=== PATIENT | male | born 1990 | race Caucasian/White ===

== ENCOUNTER 2019-02-21 00:13 | Emergency (ER) | payer BC, SELFPAY ==
[2019-02-21] MEDS ORDERED: Ondansetron ODT 4 MG TAB ONE (00:52)
[2019-02-21] MEDS ORDERED: Promethazine 25 MG TAB ONE (00:52)
== END 2019-02-21 01:00 | disposition home or self-care (01) ==
LOC: MADERS 00:13
DX: R11.2 Nausea with vomiting, unspecified (principal); R50.9 Fever, unspecified
CPT/HCPCS: 87804; 99283; Q0162; Q0169

== ENCOUNTER 2019-04-05 11:04 | Emergency (ER) | payer BC | END 2019-04-05 12:10 | disposition home or self-care (01) | LOC: MADERS 11:04 | DX: J18.9 Pneumonia, unspecified organism (principal) | CPT/HCPCS: 99283 ==

== ENCOUNTER 2019-05-23 12:18 | Emergency (ER) | payer BC ==
--- NOTE | 2019-05-23 13:05 | RAD ---
Chest 2 views HISTORY: Cough. FINDINGS: Cardiac silhouette and pulmonary vasculature are unremarkable. Mediastinum is midline. No c onfluent airspace consolidation, pneumothorax, or pleural fluid. IMPRESSION : No active cardiopulmonary abnormalities are demonstrated.
== END 2019-05-23 13:36 | disposition home or self-care (01) ==
LOC: MADERS 12:18
DX: R05 Cough (principal)
CPT/HCPCS: 71046; 87804

== ENCOUNTER 2020-06-18 15:18 | Emergency (ER) | payer BC ==
[2020-06-18 16:39] LABS: #Basophils 0.1 thou/uL (0.0-0.2); #Eosinphils 0.2 thou/uL (0.0-0.7); #Lymphocytes 2.4 thou/uL (1.20-3.40); #Monocytes 0.5 thou/uL (0.11-0.59); %Basophils 0.8 % (0.0-1.0); %Eosinophils 3.7 % (0.0-10.0); %Lymphocytes 39.3 % (21.0-51.0); %Neutrophils 48.1 % (42.0-75.0); Hemoglobin 15.7 g/dL (14.0-18.0); Mean Corpuscular HGB CONC 32.9 g/dL (32.0-36.0); Mean Corpuscular Hemoglobin 30.2 pg (27.0-31.0); Mean Corpuscular Volume 91.8 fL (78.0-98.0); Mean Platelet Volume 9.2 fL (7.4-10.4); Platelet Count 185 thou/uL (130-400); RBC Distribution Width 10.6 % (11.5-14.5); Red Blood Cell (RBC) Count 5.18 mill/uL (4.70-6.10); White Blood Cell (WBC) Count 6.2 thou/uL (4.8-10.8)
[2020-06-18 17:00] LABS: ALT (SGPT) 24 U/L (8-55); AST (SGOT) 15 U/L (5-34); Albumin 4.2 g/dL (3.5-5.0); Alkaline Phosphatase 58 U/L (40-110); Anion Gap 13 mmol/L (10-20); BUN (Urea Nitrogen) 12 mg/dL (8.9-20.6); Bilirubin, Total 0.3 mg/dL (0.2-1.2); Calc. Creatinine Clearance 0 mL/min (70-130); Calcium 8.9 mg/dL (7.8-10.44); Carbon Dioxide 26 mmol/L (22-29); Chloride 104 mmol/L (98-107); Globulin 2.8 g/dL (2.4-3.5); Glucose 107 mg/dL (70-105); Potassium 4.4 mmol/L (3.5-5.1); Sodium 139 mmol/L (136-145)
[2020-06-18] MEDS ORDERED: Ketorolac Tromethamine 30 MG/ML VIAL ONE (17:30)
== END 2020-06-18 18:00 | disposition home or self-care (01) ==
LOC: MADERS 15:18
DX: M94.0 Chondrocostal junction syndrome [Tietze] (principal)
CPT/HCPCS: 71045; 80053; 84484; 85025; 93005; 96374; J1885

== ENCOUNTER 2020-08-28 09:15 | Emergency (ER) | payer BC | END 2020-08-28 10:00 | disposition home or self-care (01) | LOC: MADERS 09:15 | DX: M54.5 Low back pain (principal); X50.1XXA Overexertion from prolonged static or awkward postures, initial encounter | CPT/HCPCS: 99283 ==

== ENCOUNTER 2021-01-12 20:43 | Emergency (ER) | payer BC ==
[2021-01-12] MEDS ORDERED: Ibuprofen 800 MG TAB ONE (21:30)
== END 2021-01-12 21:37 | disposition home or self-care (01) ==
LOC: MADERS 20:43
DX: S43.401A Unspecified sprain of right shoulder joint, initial encounter (principal); W17.89XA Other fall from one level to another, initial encounter

== ENCOUNTER 2021-10-31 20:32 | Emergency (ER) | payer BC, SELFPAY ==
[2021-10-31] MEDS ORDERED: Boostrix 0.5 ML (Tdap) VIAL ONE (20:50)
[2021-10-31] MEDS ORDERED: Lidocaine 1% (PF) 30 ML VIAL ONE (20:51)
== END 2021-10-31 21:20 | disposition home or self-care (01) ==
LOC: MADERS 20:32
DX: S60.451A Superficial foreign body of left index finger, initial encounter (principal); W26.8XXA Contact with other sharp object(s), not elsewhere classified, initial encounter; Z23 Encounter for immunization
CPT/HCPCS: 64450; 90471; 90715; J2001

== ENCOUNTER 2023-05-05 12:03 | Emergency (ER) | payer SELFPAY ==
[2023-05-05] MEDS ORDERED: Lidocaine 1% (PF) 30 ML VIAL ONE (12:14)
[2023-05-05] MEDS ORDERED: Boostrix 0.5 ML (Tdap) VIAL (>/=7 yrs of age) ONE (12:15)
[2023-05-05] MEDS ORDERED: Bacitracin 1 PK ONE (12:58)
== END 2023-05-05 13:05 | disposition home or self-care (01) ==
LOC: MADERS 12:03
DX: S01.21XA Laceration without foreign body of nose, initial encounter (principal); Z23 Encounter for immunization; W26.8XXA Contact with other sharp object(s), not elsewhere classified, initial encounter
CPT/HCPCS: 12011; 90471; 90715; J2001

== ENCOUNTER 2024-01-18 14:54 | Emergency (ER) | payer SELFPAY ==
[2024-01-18] MEDS ORDERED: Lidocaine 1% (PF) 30 ML VIAL ONE (16:37)
[2024-01-18] MEDS ORDERED: Bacitracin 1 PK ONE (17:33)
== END 2024-01-18 17:43 | disposition home or self-care (01) ==
LOC: MADERS 14:54
DX: S01.21XA Laceration without foreign body of nose, initial encounter (principal); S01.511A Laceration without foreign body of lip, initial encounter; W22.8XXA Striking against or struck by other objects, initial encounter
CPT/HCPCS: 12013; 99282